=== PATIENT | female | born 1960 | race Caucasian/White ===

== ENCOUNTER 2017-09-04 04:43 | Emergency (ER) | payer OTHER ==
[~2017-09-04] VITALS: Ht 154.9 cm; Wt 63.5 kg
--- NOTE | 2017-09-04 04:46 | ED.ADGEN ---
Past History Past Medical History: IBS Past Surgical History: Cholecystectomy, Hysterectomy Adult General Chief Complaint Chief Complaint " I woke up with severe stabbing pain in my Lt flank.. about 4:00.. I did have a little pain yesterday.. " HPI HPI Patient is a 57 year old female who presents with above hx and complaints of severe onset of Lt. flank pain. The pain was rated 9 to 10/10, stabbing.. Pt. states initial pain was 12/10. Pt. denies hx of renal stones.. Last UTI was more than 30 yrs ago. Pt. has hx of some IBS, but states this is nothing like that kind of discomfort. No hx trauma. No travel or ill contacts. No hx of bad food intake. Pt. normally healthy. Pt. follows at [facility]. Review of Systems Review of Systems Constitutional: Denies fever or chills [] Eyes: Denies change in visual acuity, redness, or eye pain [] HENT: Denies nasal congestion or sore throat [] Respiratory: Denies cough or shortness of breath [] Cardiovascular: No additional information not addressed in HPI [] GI: Complaints of Lt flank abdominal pain, nausea, . Denies vomiting, bloody stools or diarrhea [] : Denies dysuria or hematuria [] Musculoskeletal: Denies back pain or joint pain [] Integument: Denies rash or skin lesions [] Neurologic: Denies headache, focal weakness or sensory changes [] Endocrine: Denies polyuria or polydipsia [] All other systems were reviewed and found to be within normal limits, except as documented in this note. Family History Family History Non-contributory to presentation. Current Medications Current Medications Current Medications Medications (Trade) Dose Ordered Sig/Arleth Start Time Stop Time Status Last Admin Dose Admin Ceftriaxone Sodium 1 gm/ Sodium Chloride 50 ml @ 100 mls/hr 1X ONCE 09/04/17 06:30 09/04/17 06:59 DC 09/04/17 06:07 100 MLS/HR Ceftriaxone Sodium (Rocephin) 1 gm STK-MED ONCE 09/04/17 06:00 09/04/17 06:01 DC Ketorolac Tromethamine (Toradol) 30 mg 1X ONCE 09/04/17 05:15 09/04/17 05:16 DC 09/04/17 05:16 30 MG Lactated Ringer's 1,000 ml @ 1,000 mls/hr Q1H 09/04/17 05:15 09/04/17 06:14 DC 09/04/17 05:21 1,000 MLS/HR Morphine Sulfate (Morphine 10mg Syringe) 10 mg 1X ONCE 09/04/17 06:30 09/04/17 06:31 DC 09/04/17 06:08 10 MG Ondansetron HCl (Zofran) 8 mg 1X ONCE 09/04/17 05:15 09/04/17 05:16 DC 09/04/17 05:16 8 MG Sodium Chloride 50 ml @ As Directed STK-MED ONCE 09/04/17 06:00 09/04/17 06:01 DC Tamsulosin HCl (Flomax) 0.4 mg 1X ONCE 09/04/17 06:30 09/04/17 06:31 DC 09/04/17 06:08 0.4 MG Allergies Allergies Allergies Coded Allergies Type Severity Reaction Last Updated Verified No Known Drug Allergies 09/04/17 No Physical Exam Physical Exam Constitutional: Moderately acute distress, non-toxic appearance. [] HENT: Normocephalic, atraumatic, bilateral external ears normal, oropharynx moist, no oral exudates, nose normal. [] Eyes: PERRLA, EOMI, conjunctiva normal, no discharge. glasses. Neck: Normal range of motion, no tenderness, supple, no stridor. [] Cardiovascular:Heart rate regular rhythm, no murmur [] Lungs & Thorax: Bilateral breath sounds clear and equal to auscultation [] Abdomen: Bowel sounds decreased, soft, , no masses, no pulsatile masses. Mild Lt flank tenderness on percussion. Old surgery scars. Skin: Warm, dry, no erythema, no rash. [] Back: No tenderness, no CVA tenderness. [] Extremities: No tenderness, no cyanosis, no clubbing, ROM intact, no edema. [] Neurologic: Alert and oriented X 3, normal motor function, normal sensory function, no focal deficits noted. [] Psychologic: Affect anxious, judgement normal, mood normal. [] Current Patient Data Vital Signs Vital Signs Date Time Temp Pulse Resp B/P (MAP) Pulse Ox O2 Delivery O2 Flow Rate FiO2 09/04/17 08:30 98.4 72 16 120/71 (87) 93 Room Air Lab Results Laboratory Tests Test 09/04/17 05:08 White Blood Count 14.7 x10^3/uL (4.0-11.0) H Red Blood Count 4.97 x10^6/uL (3.50-5.40) Hemoglobin 13.9 g/dL (12.0-15.5) Hematocrit 41.4 % (36.0-47.0) Mean Corpuscular Volume 83 fL (79-100) Mean Corpuscular Hemoglobin 28 pg (25-35) Mean Corpuscular Hemoglobin Concent 34 g/dL (31-37) Red Cell Distribution Width 13.2 % (11.5-14.5) Platelet Count 251 x10^3/uL (140-400) Neutrophils (%) (Auto) 60 % (31-73) Lymphocytes (%) (Auto) 31 % (24-48) Monocytes (%) (Auto) 7 % (0-9) Eosinophils (%) (Auto) 1 % (0-3) Basophils (%) (Auto) 1 % (0-3) Neutrophils # (Auto) 8.9 x10^3uL (1.8-7.7) H Lymphocytes # (Auto) 4.6 x10^3/uL (1.0-4.8) Monocytes # (Auto) 1.0 x10^3/uL (0.0-1.1) Eosinophils # (Auto) 0.1 x10^3/uL (0.0-0.7) Basophils # (Auto) 0.1 x10^3/uL (0.0-0.2) Urine Collection Type Unknown Urine Color Yellow Urine Clarity Hazy Urine pH 5.0 Urine Specific [place] 1.025 Urine Protein 30 mg/dl (NEG-TRACE) Urine Glucose (UA) Neg mg/dL (NEG) Urine Ketones (Stick) Neg mg/dL (NEG) Urine Blood Large (NEG) Urine Nitrite Neg (NEG) Urine Bilirubin Neg (NEG) Urine Urobilinogen Dipstick 0.2 mg/dL (0.2 mg/dL) Urine Leukocyte Esterase Mod (NEG) Urine RBC >40 /HPF (0-2) Urine WBC >40 /HPF (0-4) Urine Squamous Epithelial Cells Occ /LPF Urine Bacteria Many /HPF (0-FEW) Sodium Level 139 mmol/L (136-145) Potassium Level 3.5 mmol/L (3.5-5.1) Chloride Level 103 mmol/L (98-107) Carbon Dioxide Level 26 mmol/L (21-32) Anion Gap 10 (6-14) Blood Urea Nitrogen 19 mg/dL (7-20) Creatinine 0.8 mg/dL (0.6-1.0) Estimated GFR (Cockcroft-Gault) 73.4 Glucose Level 105 mg/dL (70-99) H Calcium Level 9.3 mg/dL (8.5-10.1) Total Bilirubin 0.3 mg/dL (0.2-1.0) Direct Bilirubin 0.1 mg/dL (0.0-0.2) Aspartate Amino Transferase (AST) 21 U/L (15-37) Alanine Aminotransferase (ALT) 37 U/L (14-59) Alkaline Phosphatase 100 U/L (46-116) Total Protein 8.0 g/dL (6.4-8.2) Albumin 4.2 g/dL (3.4-5.0) Lipase 119 U/L (73-393) Microbiology 09/04/17 Urine Culture - Final, Complete 09/04/17 Urine Culture Result 1 (EMILY) - Final, Complete EKG EKG [] Radiology/Procedures Radiology/Procedures My interpretation of Acute Abd. show no acute cardiopulmonary changes, no free air under the diaphragm. Clips Rt upper quadrant and lower lt & Rt quadrant. Non-specific bowel gas pattern. [] My interpretation of CT show Lt renal stone with mild hydronephrosis. Multiple other stones- non-obstructing. No other acute surgical pathology noted. Formal CT reading pending. Course & Med Decision Making Course & Med Decision Making Pertinent Labs and Imaging studies reviewed. (See chart for details)- Pt. formal CT reading pending at shift change- Dr. Doyle will make final disposition admit or discharge home. [] Final Impression Final Impression 1. Lt. flank pain abd. pain- Lt. obstructing Renal stone 2. Leukocytosis 3. UTI 4. Renal Colic 5. Multiple Non-obstructing Renal stone Problems: Dragon Disclaimer Dragon Disclaimer This electronic medical record was generated, in whole or in part, using a voice recognition dictation system. ERIKA CHOUDHARY MD Sep 04, 2017 04:46
[2017-09-04] MEDS ORDERED: KETOROLAC 30 MG/ML VIAL. IV ONE (05:15)
[2017-09-04] MEDS ORDERED: ONDANSETRON PF 4 MG/2 ML VIAL. IV ONE (05:15)
[2017-09-04] MEDS ORDERED: IV RINGERS SOLUTION,LACTATED 1,000 ML IV SCH (05:15)
[2017-09-04 05:23] LABS: BASO # 0.1 x10^3/uL (0.0-0.2); BASO % 1 % (0-3); EOS # 0.1 x10^3/uL (0.0-0.7); EOS % 1 % (0-3); HEMATOCRIT 41.4 % (36.0-47.0); HEMOGLOBIN 13.9 g/dL (12.0-15.5); LYMPH # 4.6 x10^3/uL (1.0-4.8); LYMPH % 31 % (24-48); MEAN CORPUSCULAR HEMOGLOBIN 28 pg (25-35); MEAN CORPUSCULAR HGB CONC 34 g/dL (31-37); MEAN CORPUSCULAR VOLUME 83 fL (79-100); MONO % 7 % (0-9); NEUT # 8.9 x10^3uL (1.8-7.7); NEUT % 60 % (31-73); PLATELET COUNT 251 x10^3/uL (140-400); RED BLOOD COUNT 4.97 x10^6/uL (3.50-5.40); RED CELL DISTRIBUTION WIDTH 13.2 % (11.5-14.5); WHITE BLOOD COUNT 14.7 x10^3/uL (4.0-11.0)
[2017-09-04 05:28] LABS: BILIRUBIN,URINE NEG (NEG); CLARITY,URINE HAZY; COLOR,URINE YELLOW; GLUCOSE,URINE NEG (NEG); NITRITE,URINE NEG (NEG); RBC,URINE >40 /HPF (0-2); UROBILINOGEN,URINE 0.2 mg/dL (0.2 mg/dL)
[2017-09-04 05:29] LABS: BACTERIA,URINE MANY /HPF (0-FEW); SQUAMOUS EPITHELIAL CELL,UR OCC /LPF; WBC,URINE >40 /HPF (0-4)
[2017-09-04 05:36] LABS: ALBUMIN 4.2 g/dL (3.4-5.0); CALCIUM 9.3 mg/dL (8.5-10.1); CREATININE 0.8 mg/dL (0.6-1.0); DIRECT BILIRUBIN 0.1 mg/dL (0.0-0.2); GFR 73.4; POTASSIUM 3.5 mmol/L (3.5-5.1); TOTAL BILIRUBIN 0.3 mg/dL (0.2-1.0)
[2017-09-04] MEDS ORDERED: cefTRIAXone SODIUM 1 GM VIAL IV ONE (06:00)
[2017-09-04] MEDS ORDERED: IV NORMAL SALINE 50ML 50 ML ONE (06:00)
--- NOTE | 2017-09-04 06:23 | RAD ---
INDICATION: LUQ abdominal pain, hematuria
No previous for comparison COMPARISON: None. TECHNIQUE: Axial CT images obtained through the abdomen and pelvis without contrast. Limited assessment of solid organ structures and vasculature secondary to lack of intravenous contrast.. One or more of the following individualized dose reduction techniques were utilized for this examination: 1. Automated exposure control; 2. Adjustment of the mA and/or kV according to patient size; 3. Use of iterative reconstruction technique. FINDINGS: Mild distention distal esophagus. Calcific atherosclerosis without abdominal aortic aneurysm. Lobulated cystic lesion of the liver measuring up to about 4.3 cm. No intrahepatic bile duct dilation. Postcholecystectomy changes. No peripancreatic fluid collection. Spleen unremarkable. Left-sided hydronephrosis with 5 mm proximal ureter stone. Multiple additional nonobstructive bilateral renal stones. Urinary bladder is largely decompressed. There couple 1 mm high density structures in the right proximal ureter. Colonic diverticulosis. No periappendiceal inflammation. There couple mildly prominent loops of small bowel in the upper abdomen without a high-grade transition point to suggest obstruction. Degenerative changes spine. Patchy osseous demineralization. IMPRESSION: Left-sided hydronephrosis with proximal ureter stone. There is some more questionable tiny high density foci within the right proximal ureter. This could be artifactual in nature but additional tiny right ureter stone not excluded. Multiple nonobstructive bilateral renal stones. Cystic lesion of the liver. Electronically signed by: Kt Peña MD (09/04/2017 6:20 AM) [id number]
[2017-09-04] MEDS ORDERED: MORPHINE SULFATE 10 MG/ML SYRINGE. SQ ONE (06:30)
[2017-09-04] MEDS ORDERED: TAMSULOSIN 0.4 MG CAP.ER.24H. PO ONE (06:30)
[2017-09-04 08:30] VITALS: BP 120/71
--- NOTE | 2017-09-04 08:30 | RAD ---
Single view chest and upright supine AP views abdomen 09/04/2017 Clinical indication: Left upper quadrant abdominal pain, hematuria. Comparison: CT abdomen and pelvis 09/04/2017. Findings: Cardiac and mediastinal silhouettes are unremarkable. No pleural effusion, pneumothorax or focal consolidation. Right upper quadrant cholecystectomy clips. There is pelvic surgical material and left hemipelvic surgical clips. No radiographic evidence of bowel obstruction. No pneumoperitoneum. There are multiple tiny calcific densities overlying the renal silhouettes. Impression: 1. No acute cardiopulmonary abnormality. 2. No radiographic evidence of bowel obstruction or pneumoperitoneum. 3. Bilateral punctate calcific densities overlying the expected regions of the renal silhouettes, may represent nephrolithiasis.
== END 2017-09-04 08:33 | disposition short-term general hospital (02) ==
LOC: ER 04:43
DX: N13.2 Hydronephrosis with renal and ureteral calculous obstruction (principal); D72.829 Elevated white blood cell count, unspecified; N39.0 Urinary tract infection, site not specified; Z90.49 Acquired absence of other specified parts of digestive tract; Z90.710 Acquired absence of both cervix and uterus
CPT/HCPCS: 36415; 74022; 74176; 80048; 80076; 81001; 83690; 85025; 87086; 96361; 96372; 96374; 96375; 99285; J0696; J1885; J2270; J2405; J7120